=== PATIENT | male | born 1965 ===

== ENCOUNTER → 2018-09-03 21:35 | Outpatient (REF) | payer OTHER, SELFPAY ==
[2018-09-03 22:58] LABS: Hematocrit 51.3 % (41-53); Hemoglobin 17.4 g/dL (13.5-17.5); Mean Corpuscular HGB Conc 33.8 % (30-36); Mean Corpuscular Volume 94.4 fL (80-100); Platelet Count 214 X10^3/uL (150-400); Red Blood Cell Count 5.43 X10^6/uL (4.5-5.9); Red Cell Distribution Width 13.8 % (11.6-14.8)
[2018-09-03 23:34] LABS: Add Manual Diff / Slide Review YES
[2018-09-04 04:54] LABS: RBC Morphology Normal Morphology
[2018-09-05 16:12] LABS: Estradiol 98 pg/mL (< 40)
[2018-09-05 17:36] LABS: Sex Hormone Binding Globulin 32 nmol/L (10-50)
[2018-09-06 14:23] LABS: PSA Total 0.68 ng/mL (< 4.01)
[2018-09-07 15:29] LABS: Testosterone Free 510.1 pg/mL (35.0-155.0); Testosterone Total 1790 ng/dL (250-1100)
== END ==
LOC: LAB 21:35
PROVIDERS: Visit Provider Naturopath
DX: E29.1 Testicular hypofunction (principal); M54.5 Low back pain; R53.83 Other fatigue
CPT/HCPCS: 82670; 84153; 84154; 84270; 84402; 84403; 85025

== ENCOUNTER → 2018-10-21 21:09 | Outpatient (REF) | payer OTHER, SELFPAY ==
[2018-10-21 23:18] LABS: Add Manual Diff / Slide Review NO; Basophils Absolute Auto 100 /uL (0-100); Basophils Percent Auto 1.3 % (0-2); Eosinophils Absolute Auto 100 /uL (0-450); Eosinophils Percent Auto 2.3 % (2-4); Hematocrit 52.2 % (41-53); Hemoglobin 17.7 g/dL (13.5-17.5); Lymphocytes Absolute Auto 1100 /uL (1100-4500); Lymphocytes Percent Auto 25.6 % (25-40); Mean Corpuscular Hemoglobin 31.7 PG (26-34); Mean Corpuscular Volume 93.2 fL (80-100); Monocytes Absolute Auto 500 /uL (0-900); Monocytes Percent Auto 12.4 % (3-14); Neutrophils Absolute Auto 2500 /uL (1500-7000); Neutrophils Percent Auto 58.4 % (50-75); Platelet Count 193 X10^3/uL (150-400); Red Cell Distribution Width 12.8 % (11.6-14.8); White Blood Cell Count 4.2 X10^3/uL (4.5-11.0)
[2018-10-23 13:51] LABS: Dehydroepiandrosterone Sulfate 150 mcg/dL (38-313); PSA Total 0.66 ng/mL (< 4.01)
[2018-10-23 15:59] LABS: Sex Hormone Binding Globulin 38 nmol/L (10-50)
[2018-10-24 20:49] LABS: Estradiol 22 pg/mL (< 40)
[2018-10-29 13:57] LABS: Testosterone Free 33.6; Testosterone Total 285
== END ==
LOC: LAB 21:09
PROVIDERS: Visit Provider Naturopath
DX: E29.1 Testicular hypofunction (principal); M54.5 Low back pain
CPT/HCPCS: 36415; 82627; 82670; 84153; 84154; 84270; 84402; 84403; 85025